=== PATIENT | male | born 1965 | race Caucasian/White ===

== ENCOUNTER 2017-02-23 22:35 | Emergency (ER) | payer OTHER ==
[~2017-02-23] VITALS: Ht 185.4 cm; Wt 125.3 kg
[~2017-02-23 22:35] MED LIST: ALEVE220 M1 PO; ALLEGRA180 MG PO; DILAUDID2 MG PO; Duragesic TD; HYDROCHLOROTH12.5 M1; LIDODERM 5% P1 PATCH TD; NEXIUM40 MG PO; ZANAFLEX2 MG PO; ZOLOFT100 M1 GT; Zoloft PO
[2017-02-24 00:09] VITALS: BP 150/104
== END 2017-02-24 00:09 | disposition home or self-care (01) ==
LOC: EME 22:35
DX: S05.01XA Injury of conjunctiva and corneal abrasion without foreign body, right eye, initial encounter (principal); W20.8XXA Other cause of strike by thrown, projected or falling object, initial encounter; Y92.513 Shop (commercial) as the place of occurrence of the external cause; Y99.0 Civilian activity done for income or pay; I10 Essential (primary) hypertension
CPT/HCPCS: 99281; 99284

== ENCOUNTER 2017-05-04 08:50 | Day surgery (SDC) | payer OTHER ==
[~2017-05-04] VITALS: Ht 185.4 cm; Wt 122.5 kg
[~2017-05-04 08:50] MED LIST changes: +AVENTYL,PAMELOR25 MG PO; +CYANOCOBALAM1000 MCG PO; +LORCET 5-325 M1 EACH PO; +NEURONTIN300 MG PO; +PROTONIX40 MG PO; +VITAMIN B-6100 MG PO; +ZESTORETIC 20-1 EAC1 PO; +ZYRTEC10 M3 PO
== END 2017-05-04 10:25 | disposition home or self-care (01) ==
LOC: PAIN 08:50 → SDC 09:15 → PAIN 10:25
PROC: 3E0R33Z Introduction of Anti-inflammatory into Spinal Canal, Percutaneous Approach (ICD-10-PCS; principal; 2017-05-04)
PROC: 3E0R3BZ Introduction of Anesthetic Agent into Spinal Canal, Percutaneous Approach (ICD-10-PCS; principal; 2017-05-04)
DX: M47.26 Other spondylosis with radiculopathy, lumbar region (principal); M54.5 Low back pain; M48.061 Spinal stenosis, lumbar region without neurogenic claudication; M96.1 Postlaminectomy syndrome, not elsewhere classified; M54.12 Radiculopathy, cervical region; I10 Essential (primary) hypertension; K21.9 Gastro-esophageal reflux disease without esophagitis; Z79.891 Long term (current) use of opiate analgesic
CPT/HCPCS: J1030; J1100; J2250; J3010; S0020

== ENCOUNTER 2017-05-08 11:01 | Emergency (ER) | payer OTHER ==
[~2017-05-08] VITALS: Ht 185.4 cm; Wt 120.4 kg
[2017-05-08 11:23] VITALS: BP 133/84
[2017-05-08] MEDS ORDERED: NAPROSYN500 MG PO (14:20)
== END 2017-05-08 14:47 | disposition home or self-care (01) ==
LOC: EME 11:01
DX: S90.31XA Contusion of right foot, initial encounter (principal); M77.31 Calcaneal spur, right foot; M54.5 Low back pain; W14.XXXA Fall from tree, initial encounter; F32.9 Major depressive disorder, single episode, unspecified; Z87.442 Personal history of urinary calculi
CPT/HCPCS: 72131; 73610; 99281; 99284

== ENCOUNTER 2017-06-01 09:09 | Day surgery (SDC) | payer OTHER ==
[~2017-06-01] VITALS: Ht 185.4 cm; Wt 122.5 kg
[~2017-06-01 09:09] MED LIST changes: +NAPROSYN500 MG PO
== END 2017-06-01 11:10 | disposition home or self-care (01) ==
LOC: PAIN 09:09 → SDC 09:30 → PAIN 11:10
DX: M47.26 Other spondylosis with radiculopathy, lumbar region (principal); M51.16 Intervertebral disc disorders with radiculopathy, lumbar region; G89.29 Other chronic pain; M54.5 Low back pain; M48.061 Spinal stenosis, lumbar region without neurogenic claudication; M54.12 Radiculopathy, cervical region; M96.1 Postlaminectomy syndrome, not elsewhere classified; K21.9 Gastro-esophageal reflux disease without esophagitis; Z79.891 Long term (current) use of opiate analgesic
CPT/HCPCS: J1100; J2250; J3010

== ENCOUNTER 2017-07-11 19:32 | Emergency (ER) | payer OTHER ==
[~2017-07-11] VITALS: Ht 185.4 cm; Wt 122.7 kg
[2017-07-11] MEDS ORDERED: LIDODERM 5% P1 PATCH TD (23:12)
[2017-07-11] MEDS ORDERED: MOTRIN800 MG PO (23:12)
[2017-07-11] MEDS ORDERED: PREDNISONE20 MG PO (23:12)
[2017-07-11 23:43] VITALS: BP 138/75
== END 2017-07-11 23:44 | disposition home or self-care (01) ==
LOC: EME 19:32
DX: M54.41 Lumbago with sciatica, right side (principal); M54.42 Lumbago with sciatica, left side; M79.671 Pain in right foot; M77.31 Calcaneal spur, right foot; M79.89 Other specified soft tissue disorders; G89.29 Other chronic pain; F32.9 Major depressive disorder, single episode, unspecified
CPT/HCPCS: 72100; 73650; 93971; 99281; 99284; J1885; J7512

== ENCOUNTER 2017-09-07 11:53 | Day surgery (SDC) | payer OTHER ==
[~2017-09-07] VITALS: Ht 185.4 cm; Wt 120.2 kg
[~2017-09-07 11:53] MED LIST changes: +ALEVE220 MG PO; +CREON 241 CAPSULE PO; +IMODIUM A-D2 M2 PO; +MOTRIN800 MG PO; +PREDNISONE20 MG PO; +ZOLOFT100 MG PO
== END 2017-09-07 13:07 | disposition home or self-care (01) ==
LOC: PAIN 11:53
DX: M47.816 Spondylosis without myelopathy or radiculopathy, lumbar region (principal); M46.92 Unspecified inflammatory spondylopathy, cervical region; G89.29 Other chronic pain; I10 Essential (primary) hypertension; E11.9 Type 2 diabetes mellitus without complications; E78.5 Hyperlipidemia, unspecified
CPT/HCPCS: J1100; J2250

== ENCOUNTER 2018-01-13 07:44 | Day surgery (SDC) | payer OTHER ==
[~2018-01-13] VITALS: Ht 185.4 cm; Wt 122.0 kg
[2018-01-13] MEDS ORDERED: LYRICA25 MG PO (08:07)
[2018-01-13 08:42] VITALS: BP 136/87
[2018-01-13 16:12] VITALS: BP 134/82
[2018-01-13 18:18] VITALS: BP 134/74
== END 2018-01-13 18:35 | disposition home or self-care (01) ==
LOC: SDC 07:44
DX: M93.271 Osteochondritis dissecans, right ankle and joints of right foot (principal); M76.71 Peroneal tendinitis, right leg; M21.6X1 Other acquired deformities of right foot; M89.9 Disorder of bone, unspecified; M25.371 Other instability, right ankle; I10 Essential (primary) hypertension; K21.9 Gastro-esophageal reflux disease without esophagitis
CPT/HCPCS: 73600; 76000; C1713; J0131; J0690; J1100; J1170; J2250; J2405; J2795; J3010; S0020

== ENCOUNTER 2018-01-27 21:40 | Emergency (ER) | payer OTHER ==
[~2018-01-27] VITALS: Ht 185.4 cm; Wt 125.1 kg
[~2018-01-27 21:40] MED LIST changes: +LYRICA25 MG PO
[2018-01-28] MEDS ORDERED: ERYTHROMYC1 APPLICAT RIGHT EYE (01:21)
[2018-01-28 01:56] VITALS: BP 114/73
== END 2018-01-28 01:57 | disposition home or self-care (01) ==
LOC: EME 21:40
DX: H11.31 Conjunctival hemorrhage, right eye (principal); I10 Essential (primary) hypertension
CPT/HCPCS: 99281; 99284